=== PATIENT | male | born 1990 | race Caucasian/White ===

== ENCOUNTER 2017-01-29 18:02 | Emergency (ER) | payer OTHER ==
[~2017-01-29] VITALS: Ht 180.3 cm; Wt 115.4 kg
[2017-01-29 18:07] VITALS: TEMP 37.2; Ht 180.3 cm; Wt 115.4 kg
--- NOTE | 2017-01-29 19:05 | DIAGNOSTIC IMAGING REPORT ---
ULTRASOUND TESTES AND SCROTUM CLINICAL HISTORY: Right testicular pain. COMPARISON STUDY: No priors. TECHNIQUE: Real-time, grayscale, and color Doppler sonography of the testes and scrotum is performed. Images are reviewed in the transverse and longitudinal planes. FINDINGS: The testes are normal in size. The right testis measures 4.5 x 2.5 x 3.0 cm and the left testis measures 4.3 x 2.2 x 2.4 cm. No intratesticular mass is seen. The left testis is homogeneous in echotexture. The right testis is heterogeneous in echotexture and appears hyperemic on color imaging. Normal Doppler waveforms are identified in both testes. The epididymal heads are normal in appearance. The right epididymal head measures 1.1 cm in length and the left epididymal head measures 1.1 cm in length. No varicocele or hydrocele is seen. IMPRESSION: 1. The testes are normal in size. Normal Doppler waveforms are present in both testes. 2. The right testis is heterogeneous in echotexture and hyperemic on color imaging. The appearance suggests orchitis. Clinical correlation will be required. Electronically signed by: Calvin Don M.D. 01/29/2017 7:04 PM Dictated Date/Time: 01/29/2017 7:01 PM
[2017-01-29] MEDS ORDERED: CEFTRIAXONE SOD 350MG/ML 1 GM VIAL IM STA (19:09)
[2017-01-29] MEDS ORDERED: DOXYCYCLINE HYCLATE 100 MG CAP PO ONE (19:15)
[2017-01-29 19:50] LABS: URINE APPEARANCE CLEAR (CLEAR); URINE BILIRUBIN NEG (NEG); URINE COLOR DK YELLOW; URINE EPITHELIAL CELL AUTO 20-30 /lpf (0-5); URINE NITRITE NEG (NEG); URINE PH 5.5 (4.5-7.5); URINE SPECIFIC GRAVITY 1.031 (1.000-1.030); UROBILINOGEN NEG (NEG)
[2017-01-29 19:56] LABS: MANUAL MICROSCOPIC REQUIRED? NO; REVIEW REQ? YES
[2017-01-29 20:04] LABS: URINE MUCUS PRESENT (NONE PRSENT)
[2017-01-29 20:05] LABS: ZZUR CULT IF INDIC CLEAN CATCH YES
[2017-01-29] MEDS ORDERED: CEPH500C PO (20:15)
[2017-01-29] MEDS ORDERED: DOXY100C PO (20:15)
[2017-01-29 20:22] VITALS: BP 136/84; PULSE 96; O2SAT 97
--- NOTE | 2017-01-30 00:10 | EMERGENCY ROOM VISIT NOTE ---
History Report prepared by James: Wili Iyer Under the Supervision of: Jeanne McmahanO. First contact with patient: 18:10 Chief Complaint: TESTICULAR PAIN Stated Complaint: SEVER PAIN ON R SIDE OF SCROTUM AND SWELLING History of Present Illness The patient is a 26 year old male who presents to the Emergency Room with complaints of constant, sharp, pain to the left side of his scrotum beginning two days ago. The patient states he woke up in the night, and his discomfort was present. He reports it was not there when he went to bed. He reports he has mild pain with urination, and it it difficult for him to urinate. The patient notes he has not been sexually active for the past month, and it was with a single partner. He states he can feel a mass on top of his left testicle. The patient reports sitting helps his discomfort but movement worsens it. Pt denies headache, change in vision, fevers, chest pain, shortness of breath, nausea, vomiting, diarrhea, trauma, and a history of this before. Source of History: patient Onset: two days ago Position: other (left scrotum) Quality: sharp Timing: constant Modifying Factors (Worsening): movement Modifying Factors (Relieving): other (sitting) Associated Symptoms: No fevers, No headache, No chest pain, No SOB, No nausea, No vomiting, No diarrhea Note: Denies change in vision, pain with urination, trauma, and a history of this before Review of Systems See HPI for pertinent positives & negatives. A total of 10 systems reviewed and were otherwise negative. Past Medical & Surgical Medical Problems: (1) Chest pain Family History No pertinent family history Social History Smoking Status: Never Smoker Alcohol Use: occasionally Housing Status: lives with family Occupation Status: employed Current/Historical Medications Scheduled Cephalexin Monohydrate (Keflex), 500 MG PO TID Doxycycline Hyclate (Vibramycin), 100 MG PO BID Allergies Coded Allergies: Morphine (Verified Allergy, Mild, n/v, 01/29/17) Physical Exam Vital Signs Date Time Temp Pulse Resp B/P (MAP) Pulse Ox O2 Delivery O2 Flow Rate FiO2 01/29/17 20:22 96 18 136/84 97 01/29/17 18:07 37.2 106 18 148/86 97 Room Air Physical Exam GENERAL: Sitting up in bed, disheveled, no distress, non-toxic EYE EXAM: normal conjunctiva, PERRL and EOM's grossly intact OROPHARYNX: no exudate, no erythema, lips, buccal mucosa, and tongue normal and mucous membranes are moist NECK: supple, no nuchal rigidity, no adenopathy, non-tender LUNGS: Clear to auscultation. Normal chest wall mechanics HEART: no murmurs, S1 normal and S2 normal ABDOMEN: abdomen soft, non-tender, normo-active bowel sounds, no masses, no rebound or guarding. : Tenderness and fullness to the posterior aspect of the right testicle, no penial discharge, positive cremasteric reflex bilaterally, no hernia appreciated. SKIN: no rashes and no bruising UPPER EXTREMITIES: upper extremities are grossly normal. LOWER EXTREMITIES: No pitting edema. NEURO EXAM: Normal sensorium, cranial nerves II-XII grossly intact, normal speech, no gross weakness of arms, no gross weakness of legs. Medical Decision & Procedures ER Provider Diagnostic Interpretation: Radiology results as stated below per my review and the radiologist's interpretation: ULTRASOUND TESTES AND SCROTUM CLINICAL HISTORY: Right testicular pain. COMPARISON STUDY: No priors. TECHNIQUE: Real-time, grayscale, and color Doppler sonography of the testes and scrotum is performed. Images are reviewed in the transverse and longitudinal planes. FINDINGS: The testes are normal in size. The right testis measures 4.5 x 2.5 x 3.0 cm and the left testis measures 4.3 x 2.2 x 2.4 cm. No intratesticular mass is seen. The left testis is homogeneous in echotexture. The right testis is heterogeneous in echotexture and appears hyperemic on color imaging. Normal Doppler waveforms are identified in both testes. The epididymal heads are normal in appearance. The right epididymal head measures 1.1 cm in length and the left epididymal head measures 1.1 cm in length. No varicocele or hydrocele is seen. IMPRESSION: 1. The testes are normal in size. Normal Doppler waveforms are present in both testes. 2. The right testis is heterogeneous in echotexture and hyperemic on color imaging. The appearance suggests orchitis. Clinical correlation will be required. Electronically signed by: Calvin Don M.D. 01/29/2017 7:04 PM Dictated Date/Time: 01/29/2017 7:01 PM Laboratory Results Test 01/29/17 19:05 Urine Color DK YELLOW Urine Appearance CLEAR (CLEAR) Urine pH 5.5 (4.5-7.5) Urine Specific [place] 1.031 (1.000-1.030) Urine Protein NEG (NEG) Urine Glucose (UA) NEG (NEG) Urine Ketones TRACE (NEG) Urine Occult Blood NEG (NEG) Urine Nitrite NEG (NEG) Urine Bilirubin NEG (NEG) Urine Urobilinogen NEG (NEG) Urine Leukocyte Esterase TRACE (NEG) Urine WBC (Auto) 1-5 /hpf (0-5) Urine RBC (Auto) 0-4 /hpf (0-4) Urine Hyaline Casts (Auto) 1-5 /lpf (0-5) Urine Epithelial Cells (Auto) 20-30 /lpf (0-5) Urine Bacteria (Auto) 1+ (NEG) Urine Crystals CALCIUM OXALATE (NONE Urine Mucus PRESENT (NONE PRSENT) Laboratory results per my review. Medications Administered Medications (Trade) Dose Ordered Sig/Manish Route Start Time Stop Time Status Last Admin Dose Admin Doxycycline Hyclate (Vibramycin Cap) 100 mg ONE ONCE PO 01/29/17 19:15 01/29/17 19:16 DC 01/29/17 19:46 100 MG Ceftriaxone Sodium (Rocephin Im) 250 mg NOW STAT IM 01/29/17 19:09 01/29/17 19:11 DC 01/29/17 19:46 250 MG ED Course ED COURSE: Vital signs were reviewed and showed tachycardia and hypertension. The patients medical record was reviewed The above diagnostic studies were performed and reviewed. ED treatments and interventions as stated above. 1810: The patient was evaluated in room C03. A complete history and physical examination was performed. 1908: Ordered Rocephin Im 250mg IM 1914: Ordered Doxycycline Hyclate 100mg PO 2022: Upon reevaluation, the patient is resting.I discussed my findings with the patient and he understands and agrees with the treatment plan. Based on the patients age, coexisting illnesses, exam and lab findings the decision to treat as an outpatient was made. The patient remained stable while under my care. The patient appeared well at the time of discharge. Medical Decision Differential diagnosis: Etiologies such as torsion, mass, infection, hernia, hydrocele, epididymitis, trauma, intra-abdominal process, as well as others were entertained. Patient is a 26-year-old male who presents to ER for testicle pain. On exam right testicle is tender and slightly swollen. No signs of torsion. Ultrasound confirms an orchitis. Pain improves with elevation of the scrotum. No fevers. Patient is sexually active. Patient was given IM Rocephin in covered with doxycycline for STDs and Keflex for a UTI/e.coli. UA was contaminated. Patient was updated bedside and discharged follow-up with PCP in 24-48 hours for a recheck. Stressed importance of no intercourse for the next 3 weeks. Discussed with Pt concerning signs and symptoms to watch out for. Pt was instructed to follow up with their PCP and discussed with the patient their option to return to the ED at anytime for persistent or worsening symptoms. The appropriate anticipatory guidance and out-patient management, including indications for return to the emergency department, were explained at length to the patient and understood. Medication Reconcilliation Current Medication List: was personally reviewed by me Blood Pressure Screening Patient's blood pressure: Elevated blood pressure Blood pressure disposition: Referred to PCP Impression Primary Impression: Orchitis Scribe Attestation The scribe's documentation has been prepared under my direction and personally reviewed by me in its entirety. I confirm that the note above accurately reflects all work, treatment, procedures, and medical decision making performed by me. Departure Information Dispostion Home / Self-Care Prescriptions Cephalexin Monohydrate (Keflex) 500 Mg Cap 500 MG PO TID for 10 Days, #30 CAP Prov: Landon Londono, DO 01/29/17 Doxycycline Hyclate (VIBRAMYCIN) 100 Mg Cap 100 MG PO BID for 10 Days, CAP Prov: Landon Londono, DO 01/29/17 Referrals Hellen Morgan MD Forms HOME CARE DOCUMENTATION FORM, IMPORTANT VISIT INFORMATION, WORK / SCHOOL INSTRUCTIONS Patient Instructions ED Orchitis, My [facility] Additional Instructions Please follow up with your primary care doctor with in the next 24 hours. Any worsening of your symptoms, please return to the ED immediately. This includes any fevers greater than 100.4, worsening pain, increased swelling, unable to urinate, chest pain, shortness breath, persistent nausea, vomiting, unable to eat or drink, or any other concerning signs or symptoms from your standpoint. Please take antibiotics as prescribed.
--- NOTE | 2017-01-31 16:34 | Pharmacy Progress Note ---
ED Pharmacist Progress Note Date of Service: Jan 31, 2017. Received call from pharmacist at [facility] in *[facility]* requesting confirmation of prescriptions for cephalexin and doxycycline that were electronically submitted. This was the pharmacy that was listed as the patient's preferred pharmacy, but this was likely inaccurate. Provided verbal consent to cancel these prescriptions. Called patient to clarify where he would like prescriptions sent. Left message to call back and provided ED phone number.
== END 2017-01-29 20:25 | disposition home or self-care (01) ==
LOC: C.EDB 18:03 → C.EDC 20:25
DX: N45.2 Orchitis (principal)